=== PATIENT | male | born 1955 | race African-American/Black ===

== ENCOUNTER → 2020-10-23 | Outpatient (CLI) | payer BC ==
[2020-10-23 15:55] LABS: *AMPHETAMINES SCREEN URINE NEGATIVE (NEGATIVE); *BARBITURATES SCREEN URINE NEGATIVE (NEGATIVE); *BENZODIAZEPINES SCREEN URINE NEGATIVE (NEGATIVE); *COCAINE SCREEN URINE NEGATIVE (NEGATIVE); METHADONE URINE SCREEN NEGATIVE (NEGATIVE)
[2020-10-23 15:56] LABS: CANNABINOID URINE SCREEN NEGATIVE (NEGATIVE); OPIATES URINE SCREEN PRESUMTIVE POSITIVE (NEGATIVE)
[2020-10-23 15:57] LABS: PHENCYCLIDINE URINE SCREEN NEGATIVE (NEGATIVE)
== END | disposition home or self-care (01) ==
LOC: LAB 14:41
PROVIDERS: ATTEND Internal Medicine
DX: R82.5 Elevated urine levels of drugs, medicaments and biological substances (principal)
CPT/HCPCS: 80305

== ENCOUNTER → 2021-05-22 | Outpatient (CLI) | payer BC, MEDICARE ==
[2021-05-22 10:49] LABS: BASOPHILS % 0.3 % (0.0-2.0); EOSINOPHILS % 0.7 % (0.0-5.0); HEMATOCRIT. 43.3 % (42.0-52.0); LYMPHOCYTES % 24.2 % (20.0-50.0); MEAN CORPUSCULAR HEMOGLOBIN 28.5 pg (28.0-32.0); MEAN PLATELET VOLUME 8.3 fl (7.4-10.4); MONOCYTES % 9.1 % (2.0-8.0); NEUTROPHILS % 65.7 % (40.0-76.0); PLATELET 221 x1000/uL (130-400); RED BLOOD CELL COUNT 4.92 mill/uL (4.7-6.1); RED CELL DISTRIBUTION WIDTH 15.8 % (11.6-14.6)
[2021-05-22 10:59] LABS: CLARITY URINE CLEAR (CLEAR); COLOR URINE YELLOW (YELLOW); KETONES URINE TRACE (NEGATIVE); LEUKOCYTE ESTERASE URINE NEGATIVE (NEGATIVE); NITRITE URINE NEGATIVE (NEGATIVE); OCCULT BLOOD URINE NEGATIVE (NEGATIVE); PH URINE 5.5 (4.5-8.0); PROTEIN URINE 1+ (NEGATIVE); SPECIFIC GRAVITY URINE 1.034 (1.005-1.030); UROBILINOGEN URINE 0.2 E.U./dL (0.2-1.0)
[2021-05-22 11:52] LABS: CHLORIDE 105 mEq/L (98-107)
[2021-05-22 12:00] LABS: LDL CHOLESTEROL 61 mg/dL (5-100)
[2021-05-22 12:01] LABS: HDL CHOLESTEROL 61 mg/dL (40-59)
[2021-05-23 09:09] LABS: VITAMIN D 25-OH 12.7 ng/mL (30.0-100.0)
[2021-05-31 17:06] LABS: BARBITURATE SCREEN Negative ug/mL (Cutoff:0.1); BENZODIAZEPINE SCREEN Negative ng/mL (Cutoff:20); OPIATES SCREEN Negative ng/mL (Cutoff:5); PHENCYCLIDINE SCREEN Negative ng/mL (Cutoff:8)
== END | disposition home or self-care (01) ==
LOC: LAB 10:19
PROVIDERS: ATTEND Internal Medicine
DX: Z11.59 Encounter for screening for other viral diseases (principal); E78.5 Hyperlipidemia, unspecified; E55.9 Vitamin D deficiency, unspecified; N40.1 Benign prostatic hyperplasia with lower urinary tract symptoms; N39.0 Urinary tract infection, site not specified; E03.9 Hypothyroidism, unspecified; E11.40 Type 2 diabetes mellitus with diabetic neuropathy, unspecified; R82.5 Elevated urine levels of drugs, medicaments and biological substances
CPT/HCPCS: 36415; 80053; 80061; 80307; 81003; 82306; 83036; 84153; 84443; 85025; G0103

== ENCOUNTER → 2021-06-18 | Outpatient (CLI) | payer BC, MEDICARE | END | disposition home or self-care (01) | LOC: NM 07:35 | PROVIDERS: ATTEND Specialist | DX: R06.00 Dyspnea, unspecified (principal); R07.9 Chest pain, unspecified | CPT/HCPCS: 78451; A9500 ==

== ENCOUNTER → 2021-06-28 | Outpatient (CLI) | payer BC, MEDICARE ==
[~2021-06-28] MED LIST: REGADENOSON 0.4 MG/5 ML IV ONE
== END | disposition home or self-care (01) ==
LOC: NM 08:47
PROVIDERS: ATTEND Specialist
DX: R06.09 Other forms of dyspnea (principal); R07.9 Chest pain, unspecified; Z79.899 Other long term (current) drug therapy
CPT/HCPCS: 78452; 93017; A9500; C1893; J2785

== ENCOUNTER → 2021-07-25 | Outpatient (CLI) | payer BC, MEDICARE ==
[2021-07-25 13:25] LABS: BASOPHILS % 0.6 % (0.0-2.0); EOSINOPHILS % 1.3 % (0.0-5.0); HEMOGLOBIN. 13.9 g/dL (14.0-18.0); LYMPHOCYTES % 39.8 % (20.0-50.0); MEAN CORPUSCULAR HEMOGLOBIN 29.3 pg (28.0-32.0); MEAN CORPUSCULAR VOLUME 86.6 fL (80.0-94.0); MEAN PLATELET VOLUME 7.7 fl (7.4-10.4); MONOCYTES % 11.5 % (2.0-8.0); NEUTROPHILS % 46.8 % (40.0-76.0); PLATELET 217 x1000/uL (130-400); RED BLOOD CELL COUNT 4.73 mill/uL (4.7-6.1); RED CELL DISTRIBUTION WIDTH 16.4 % (11.6-14.6)
[2021-07-25 13:36] LABS: CHLORIDE 107 mEq/L (98-107)
[2021-07-25 13:44] LABS: LDL CHOLESTEROL 70 mg/dL (5-100)
[2021-07-25 13:45] LABS: HDL CHOLESTEROL 68 mg/dL (40-59); T4 FREE 0.99 ng/dL (0.76-1.46)
== END | disposition home or self-care (01) ==
LOC: LAB 12:59
PROVIDERS: ATTEND Specialist
DX: E11.9 Type 2 diabetes mellitus without complications (principal); E78.2 Mixed hyperlipidemia; E55.9 Vitamin D deficiency, unspecified; D64.9 Anemia, unspecified
CPT/HCPCS: 36415; 80053; 80061; 82306; 83036; 84439; 84443; 84481; 85025

== ENCOUNTER → 2021-07-29 | Outpatient (CLI) | payer BC, MEDICARE | END | disposition home or self-care (01) | LOC: CCL 08:48 | PROVIDERS: ATTEND Specialist | DX: I51.7 Cardiomegaly (principal); I51.89 Other ill-defined heart diseases | CPT/HCPCS: 93306 ==

== ENCOUNTER → 2021-08-06 | Outpatient (CLI) | payer BC, MEDICARE ==
[~2021-08-06] MED LIST changes: +IOHEXOL-300 100 ML BOTTLE ONE; -REGADENOSON 0.4 MG/5 ML IV ONE
== END | disposition home or self-care (01) ==
LOC: RAD 07:36
PROVIDERS: ATTEND Specialist
DX: J84.89 Other specified interstitial pulmonary diseases (principal); K76.0 Fatty (change of) liver, not elsewhere classified; R06.02 Shortness of breath; Z90.49 Acquired absence of other specified parts of digestive tract
CPT/HCPCS: 71270; Q9967; Z7610

== ENCOUNTER → 2021-08-15 | Outpatient (CLI) | payer BC, MEDICARE ==
[2021-08-15 13:23] LABS: BASOPHILS % 0.6 % (0.0-2.0); EOSINOPHILS % 0.7 % (0.0-5.0); HEMATOCRIT. 43.5 % (42.0-52.0); HEMOGLOBIN. 14.3 g/dL (14.0-18.0); LYMPHOCYTES % 37.5 % (20.0-50.0); MEAN CORPUSCULAR HEMOGLOBIN 28.8 pg (28.0-32.0); MEAN CORPUSCULAR VOLUME 87.3 fL (80.0-94.0); MEAN PLATELET VOLUME 8.4 fl (7.4-10.4); MONOCYTES % 9.1 % (2.0-8.0); NEUTROPHILS % 52.1 % (40.0-76.0); PLATELET 225 x1000/uL (130-400); RED BLOOD CELL COUNT 4.98 mill/uL (4.7-6.1); RED CELL DISTRIBUTION WIDTH 16.4 % (11.6-14.6)
[2021-08-15 13:32] LABS: CHLORIDE 105 mEq/L (98-107)
[2021-08-15 13:39] LABS: LDL CHOLESTEROL 71 mg/dL (5-100)
[2021-08-15 13:40] LABS: HDL CHOLESTEROL 63 mg/dL (40-59)
== END | disposition home or self-care (01) ==
LOC: LAB 12:59
PROVIDERS: ATTEND Specialist
DX: E78.2 Mixed hyperlipidemia (principal); D64.9 Anemia, unspecified
CPT/HCPCS: 36415; 80053; 80061; 82306; 83036; 85025

== ENCOUNTER → 2021-09-03 | Outpatient (CLI) | payer BC, MEDICARE ==
[2021-09-03 10:39] LABS: CHLORIDE 105 mEq/L (98-107)
== END | disposition home or self-care (01) ==
LOC: LAB 10:05
PROVIDERS: ATTEND Internal Medicine
DX: E11.42 Type 2 diabetes mellitus with diabetic polyneuropathy (principal); E78.5 Hyperlipidemia, unspecified; E55.9 Vitamin D deficiency, unspecified; Z11.59 Encounter for screening for other viral diseases; E03.9 Hypothyroidism, unspecified
CPT/HCPCS: 36415; 80048; 82306; 83036; 84443

== ENCOUNTER → 2021-10-22 | Outpatient (CLI) | payer BC, MEDICARE ==
[2021-10-22 15:25] LABS: BASOPHILS % 0.6 % (0.0-2.0); EOSINOPHILS % 1.2 % (0.0-5.0); HEMATOCRIT. 44.9 % (42.0-52.0); HEMOGLOBIN. 14.5 g/dL (14.0-18.0); LYMPHOCYTES % 38.6 % (20.0-50.0); MEAN CORPUSCULAR HEMOGLOBIN 28.4 pg (28.0-32.0); MEAN CORPUSCULAR VOLUME 88.2 fL (80.0-94.0); MONOCYTES % 11.2 % (2.0-8.0); NEUTROPHILS % 48.4 % (40.0-76.0); PLATELET 244 x1000/uL (130-400)
[2021-10-22 15:40] LABS: CHLORIDE 107 mEq/L (98-107)
[2021-10-22 15:47] LABS: LDL CHOLESTEROL 67 mg/dL (5-100)
[2021-10-22 15:48] LABS: HDL CHOLESTEROL 63 mg/dL (40-59)
[2021-10-22 16:08] LABS: PROSTRATE SPECIFIC AG TOTAL 0.77 ng/mL (0.0-4.0)
[2021-10-24 08:11] LABS: VITAMIN D 25-OH 26.9 ng/mL (30.0-100.0)
== END | disposition home or self-care (01) ==
LOC: LAB 14:36
PROVIDERS: ATTEND Internal Medicine
DX: E11.40 Type 2 diabetes mellitus with diabetic neuropathy, unspecified (principal); E78.5 Hyperlipidemia, unspecified; N40.1 Benign prostatic hyperplasia with lower urinary tract symptoms; E55.9 Vitamin D deficiency, unspecified; N39.0 Urinary tract infection, site not specified; E03.9 Hypothyroidism, unspecified; G56.00 Carpal tunnel syndrome, unspecified upper limb
CPT/HCPCS: 36415; 80053; 80061; 82306; 82607; 83036; 83880; 84153; 84207; 84252; 84425; 84436; 84443; 85025; G0103

== ENCOUNTER → 2021-12-24 | Outpatient (CLI) | payer MEDICARE | END | disposition home or self-care (01) | LOC: LAB 09:50 | PROVIDERS: ATTEND Internal Medicine | DX: E11.40 Type 2 diabetes mellitus with diabetic neuropathy, unspecified (principal) | CPT/HCPCS: 83036 ==

== ENCOUNTER → 2022-02-07 | Outpatient (CLI) | payer MEDICARE ==
[~2022-02-07] MED LIST changes: -IOHEXOL-300 100 ML BOTTLE ONE; +LIDOCAINE HCL/EPINEPHRINE 1%-EPI 1:100,000 20 ML VIAL ONE; +SODIUM BICARBONATE 4% (2.4MEQ) 5ML VIAL IV ONE
== END | disposition home or self-care (01) ==
LOC: RAD 09:33
PROVIDERS: ATTEND Internal Medicine
DX: N63.0 Unspecified lump in unspecified breast (principal)
CPT/HCPCS: 76641; J3490

== ENCOUNTER → 2022-09-23 | Outpatient (CLI) | payer BC, MEDICARE | END | disposition home or self-care (01) | LOC: US 08:41 | PROVIDERS: ATTEND Internal Medicine | DX: K76.0 Fatty (change of) liver, not elsewhere classified (principal); R16.0 Hepatomegaly, not elsewhere classified; J44.9 Chronic obstructive pulmonary disease, unspecified; R91.8 Other nonspecific abnormal finding of lung field; R14.0 Abdominal distension (gaseous) | CPT/HCPCS: 71046; 76700 ==

== ENCOUNTER → 2023-03-03 | Day surgery (SDC) | payer BC, MEDICARE ==
[~2023-03-03] MED LIST changes: +ACETAMINOPHEN 325MG TABLET PO PRN; +ALBU90AE INH; +AMOX1TAB16 MT; +ASPIRIN/SOD BICARB/CITRIC ACID 324MG TAB EFF ONE; +DEXL30CA3 PO; +DIPHENHYDRAMINE 50MG/ML VIAL ONE; +DOXA2TAB2 PO; +ERGO1250; +FAMOTIDINE 20MG/2ML VIAL IV ONE; +FENTANYL CITRATE/PF 50MCG/ML 2ML VIAL ONE; +FLUT1BLS3 IH; +GABA-290 PO; +HEPARIN 1000 UNITS/ML 10ML ONE; +HYDROCORTISONE SOD SUCCINATE 250 MG/2 ML VIAL ONE; +IODIXANOL 320MG/ML 100 ML BOTTLE IV ONE; +LIDOCAINE HCL 1% 20ML VIAL (Pyxis) INJ ONE; -LIDOCAINE HCL/EPINEPHRINE 1%-EPI 1:100,000 20 ML VIAL ONE; +MAGN200T5 PO; +MED4 MT; +METF-874 MT; +MIDAZOLAM HCL 2 MG/2 ML VIAL ONE; +MORPHINE SULFATE 2 MG/ML CPJ (NOT FOR IM USE) IV PRN; +NALOXONE HCL 0.4MG/ML VIAL IV PRN; +ONDANSETRON HCL 4MG/2ML INJ IV PRN; +OXYC-105 MT; +SACU1TAB4 PO; -SODIUM BICARBONATE 4% (2.4MEQ) 5ML VIAL IV ONE; +SPIR25TA PO; +TREP1.743 IH; +ZOLP12.52 PO
== END | disposition home or self-care (01) ==
LOC: CCL 06:26
PROVIDERS: ATTEND Specialist
DX: R07.9 Chest pain, unspecified (principal); I25.10 Atherosclerotic heart disease of native coronary artery without angina pectoris; E78.5 Hyperlipidemia, unspecified; E11.9 Type 2 diabetes mellitus without complications; I11.0 Hypertensive heart disease with heart failure; I50.9 Heart failure, unspecified; J44.9 Chronic obstructive pulmonary disease, unspecified; Z87.891 Personal history of nicotine dependence; Z79.84 Long term (current) use of oral hypoglycemic drugs; Z79.899 Other long term (current) drug therapy; Z98.890 Other specified postprocedural states; Z91.013 Allergy to seafood
CPT/HCPCS: 93460; C1769; C1887; C1893; J1200; J1644; J1720; J2250; J3010; J3490; Q9967

== ENCOUNTER → 2024-04-12 | Outpatient (CLI) | payer BC, MEDICARE ==
[~2024-04-12] MED LIST changes: -ACETAMINOPHEN 325MG TABLET PO PRN; -ASPIRIN/SOD BICARB/CITRIC ACID 324MG TAB EFF ONE; +BARIUM SULFATE 450ML ORAL SUSP ONE; -DIPHENHYDRAMINE 50MG/ML VIAL ONE; -FAMOTIDINE 20MG/2ML VIAL IV ONE; -FENTANYL CITRATE/PF 50MCG/ML 2ML VIAL ONE; -HEPARIN 1000 UNITS/ML 10ML ONE; -HYDROCORTISONE SOD SUCCINATE 250 MG/2 ML VIAL ONE; -IODIXANOL 320MG/ML 100 ML BOTTLE IV ONE; +IOHEXOL-300 100 ML BOTTLE ONE; -LIDOCAINE HCL 1% 20ML VIAL (Pyxis) INJ ONE; -MIDAZOLAM HCL 2 MG/2 ML VIAL ONE; -MORPHINE SULFATE 2 MG/ML CPJ (NOT FOR IM USE) IV PRN; -NALOXONE HCL 0.4MG/ML VIAL IV PRN; -ONDANSETRON HCL 4MG/2ML INJ IV PRN
== END | disposition home or self-care (01) ==
LOC: CT 08:00
PROVIDERS: ATTEND Internal Medicine
DX: J44.9 Chronic obstructive pulmonary disease, unspecified (principal); J84.9 Interstitial pulmonary disease, unspecified; N28.1 Cyst of kidney, acquired
CPT/HCPCS: 71250; 74176; Q9967

== ENCOUNTER → 2024-07-12 | Outpatient (CLI) | payer BC, MEDICARE ==
[~2024-07-12] MED LIST changes: -BARIUM SULFATE 450ML ORAL SUSP ONE; -IOHEXOL-300 100 ML BOTTLE ONE; -MED4 MT; +METH4TAB95 MT
== END | disposition home or self-care (01) ==
LOC: CARD 07:36
PROVIDERS: ATTEND Specialist
DX: I35.8 Other nonrheumatic aortic valve disorders (principal); I10 Essential (primary) hypertension; R06.02 Shortness of breath
CPT/HCPCS: 93306

== ENCOUNTER 2024-09-27 22:44 | Inpatient (IN) | payer BC, MEDICARE ==
[~2024-09-27] VITALS: Ht 190.5 cm; Wt 114.4 kg
[~2024-09-27 22:44] MED LIST changes: +METF-1150 MT; -METF-874 MT
[2024-09-28] MEDS: PREDNISONE 20MG TABLET PO STA
[2024-09-28 00:49] LABS: CHLORIDE 105 mEq/L (98-107); POTASSIUM 3.8 mEq/L (3.5-5.1); SODIUM 139 mEq/L (136-145)
[2024-09-28 00:50] LABS: CALCIUM 9.3 mg/dL (8.7-10.4); CARBON DIOXIDE 26 mEq/L (21-32)
[2024-09-28 00:55] LABS: GLUCOSE 96 mg/dL (70-105); UREA NITROGEN BLOOD 7 mg/dL (9-23)
[2024-09-28 00:56] LABS: TROPONIN I HIGH SENSITIVITY 7 ng/L (3.0-53)
[2024-09-28 00:58] LABS: PROTHROMBIN TIME 11.6 sec (9.6-11.0)
[2024-09-28 01:11] LABS: BASOPHILS % 0.3 % (0.0-2.0); EOSINOPHILS % 2.9 % (0.0-5.0); HEMATOCRIT. 44.9 % (42.0-52.0); HEMOGLOBIN. 14.3 g/dL (14.0-18.0); LYMPHOCYTES % 38.9 % (20.0-50.0); MEAN CORPUSCULAR HEMOGLOBIN 29.7 pg (28.0-32.0); MEAN CORPUSCULAR HGB CONC 31.9 g/dL (31.0-37.0); MEAN CORPUSCULAR VOLUME 93.1 fL (80.0-94.0); MEAN PLATELET VOLUME 8.2 fl (7.4-10.4); MONOCYTES % 10.2 % (2.0-8.0); NEUTROPHILS % 47.7 % (40.0-76.0); PLATELET 278 x1000/uL (130-400); RED BLOOD CELL COUNT 4.82 mill/uL (4.7-6.1); RED CELL DISTRIBUTION WIDTH 15.9 % (11.6-14.6); WHITE BLOOD COUNT 6.2 x1000/uL (4.5-11.0)
[2024-09-28 01:16] LABS: ALANINE AMINOTRANSFERASE 14 IU/L (10-49); ALBUMIN 4.3 g/dL (3.2-4.8); ASPARTATE AMINOTRANSFERASE 14 IU/L (<34)
[2024-09-28 01:17] LABS: BILIRUBIN DIRECT 0.2 mg/dL (<=3.0); BILIRUBIN TOTAL 0.5 mg/dL (0.1-1.0); PROTEIN TOTAL 7.7 g/dL (6.0-8.3)
[2024-09-28] MEDS ORDERED: AZITHROMYCIN 500MG/250ML 250 ML IV SCH (01:30)
[2024-09-28] MEDS: PREDNISONE 20MG TABLET PO NR (02:15)
[2024-09-28] MEDS ORDERED: AZITHROMYCIN 500MG/250ML 250 ML IV NR (02:15)
[2024-09-28] MEDS: IPRATROPIUM BROMIDE (0.02%) 0.5MG/2.5ML NEB HHN STA (02:20)
[2024-09-28] MEDS: ALBUTEROL (0.083%) 2.5MG/3ML NEB HHN STA (02:20)
[2024-09-28] MEDS: ALBUTEROL (0.083%) 2.5MG/3ML NEB HHN NR (02:29)
[2024-09-28] MEDS: IPRATROPIUM BROMIDE (0.02%) 0.5MG/2.5ML NEB HHN NR (02:29)
[2024-09-28 02:31] VITALS: PULSE 85; RESP 19; O2SAT 96
[2024-09-28 02:31] LABS: TROPONIN I HIGH SENSITIVITY 7 ng/L (3.0-53)
[2024-09-28] MEDS: CEFTRIAXONE 1GM/50ML 50 ML IV ONE (05:29)
[2024-09-28] MEDS: CEFTRIAXONE 1GM/50ML 50 ML IV NR (05:50)
[2024-09-28] MEDS ORDERED: AZITHROMYCIN 500 MG in SODIUM CHLORIDE 0.9% 250 ML IV NR (06:30)
[2024-09-28] MEDS: AZITHROMYCIN 500 MG TABLET PO NR (06:47)
[2024-09-28 08:00] VITALS: BP_SYST 122; BP_SYST 128; BP_DIAS 74; BP_DIAS 76; PULSE 86; PULSE 89; RESP 19; TEMP 36.44736; TEMP 37.16964; O2SAT 100; O2SAT 98
[2024-09-28] MEDS ORDERED: ONDANSETRON HCL 4MG/2ML INJ IV PRN (10:15)
[2024-09-28] MEDS ORDERED: ACETAMINOPHEN 325MG TABLET PO PRN (10:15)
[2024-09-28] MEDS ORDERED: NALOXONE HCL 0.4MG/ML VIAL IV PRN (11:00)
[2024-09-28] MEDS: GABAPENTIN 300MG CAPSULE PO SCH (11:26)
[2024-09-28] MEDS: METFORMIN HCL 500MG TABLET PO SCH (11:27)
[2024-09-28] MEDS: EMPAGLIFLOZIN 25MG TABLET PO SCH (11:45)
[2024-09-28] MEDS: OXYCODONE HCL/ACETAMINOPHEN 5/325MG TABLET PO PRN (11:45)
[2024-09-28 11:58] VITALS: BP 122/74; PULSE 89; RESP 18; TEMP 36.3068
[2024-09-28 12:00] VITALS: BP 128/76; PULSE 86; RESP 19; TEMP 36.44736; O2SAT 100
[2024-09-28 16:00] VITALS: BP 134/71; PULSE 87; RESP 19; TEMP 36.83628; O2SAT 97
[2024-09-28 17:03] LABS: HEPATITIS B SURFACE ANTIGEN NEGATIVE (Negative)
[2024-09-28 17:25] LABS: HEPATITIS C AB NON REACTIVE (Neg) (Negative)
[2024-09-28] MEDS ORDERED: DEXTROSE 50% WATER 50ML SYRINGE IV PRN (19:15)
[2024-09-28] MEDS: BLOOD SUGAR DIAGNOSTIC STRIP TEST SCH (21:00)
[2024-09-28 21:04] VITALS: PULSE 80; RESP 18; O2SAT 97
[2024-09-28] MEDS: IPRATROPIUM/ALBUTEROL 0.5-3(2.5)MG/3ML NEB HHN SCH (21:04)
[2024-09-28] MEDS: PREDNISONE 20MG TABLET PO SCH (21:59)
[2024-09-28] MEDS: ZOLPIDEM TARTRATE 5MG TABLET PO PRN (22:01)
[2024-09-28] MEDS: SACUBITRIL/VALSARTAN 24MG/26MG TABLET PO SCH (22:08)
[2024-09-28] MEDS: DOXAZOSIN MESYLATE 4MG TABLET PO SCH (22:09)
[2024-09-28] MEDS: INSULIN LISPRO 100 UNITS/ML SUBCUT SCH (22:17)
[2024-09-29] VITALS (9 sets, daily range): BP systolic 107–137; BP diastolic 54–78; PULSE 68–86; RESP 18–19; TEMP 35.5584–36.78072; O2SAT 96–99
[2024-09-29] MEDS: FLUTICASONE/VILANTEROL 200-25 BLST.W.DEV ORI SCH (00:29)
[2024-09-29] MEDS ORDERED: P20 MT (08:13)
[2024-09-30] VITALS: BP_SYST 122; BP_SYST 136; BP_DIAS 59; BP_DIAS 83; PULSE 75; PULSE 85; RESP 20; TEMP 36.16956; TEMP 36.50292; O2SAT 98; O2SAT 99
[2024-09-30 07:48] VITALS: PULSE 70; RESP 18; O2SAT 93
[2024-09-30] MEDS ORDERED: IPRA3AMP9 NEB (08:34)
[2024-09-30 15:11] VITALS: PULSE 84; RESP 20; O2SAT 98
[2024-09-30 16:17] VITALS: BP 116/72; PULSE 75; TEMP 97.8; O2SAT 100
== END 2024-09-30 17:20 | disposition home or self-care (01) | DRG 189 ==
LOC: ER 22:44 → 7EST 09-28 01:34 → EDBEDREQTM 09-28 01:49
PROVIDERS: ADMIT Internal Medicine; ATTEND Internal Medicine
DX: J96.20 Acute and chronic respiratory failure, unspecified whether with hypoxia or hypercapnia (principal); I42.9 Cardiomyopathy, unspecified; I27.20 Pulmonary hypertension, unspecified; J44.9 Chronic obstructive pulmonary disease, unspecified; E11.9 Type 2 diabetes mellitus without complications; Z20.822 Contact with and (suspected) exposure to COVID-19; J06.9 Acute upper respiratory infection, unspecified; I25.10 Atherosclerotic heart disease of native coronary artery without angina pectoris; E78.5 Hyperlipidemia, unspecified; G89.29 Other chronic pain; J84.10 Pulmonary fibrosis, unspecified; I11.0 Hypertensive heart disease with heart failure; I50.9 Heart failure, unspecified; Z96.651 Presence of right artificial knee joint; Z79.84 Long term (current) use of oral hypoglycemic drugs; Z87.891 Personal history of nicotine dependence; Z88.8 Allergy status to other drugs, medicaments and biological substances; Z79.899 Other long term (current) drug therapy; Z82.0 Family history of epilepsy and other diseases of the nervous system
CPT/HCPCS: 36415; 71045; 80048; 80076; 82962; 83880; 84145; 84484; 85025; 86705; 87340; 87426; 87804; 93005; 94070; 94640; 99285; J0456; J0696; J1815; J7050; J7512

== ENCOUNTER → 2025-02-15 | Outpatient (CLI) | payer MEDICARE ==
[~2025-02-15] MED LIST changes: +IPRA3AMP9 NEB; -METH4TAB95 MT; +P20 MT
== END | disposition home or self-care (01) ==
LOC: RAD 10:04
PROVIDERS: ATTEND Internal Medicine
DX: M47.812 Spondylosis without myelopathy or radiculopathy, cervical region (principal); M19.012 Primary osteoarthritis, left shoulder; M19.032 Primary osteoarthritis, left wrist; M18.12 Unilateral primary osteoarthritis of first carpometacarpal joint, left hand; M21.241 Flexion deformity, right finger joints; M77.8 Other enthesopathies, not elsewhere classified; M25.78 Osteophyte, vertebrae; M79.89 Other specified soft tissue disorders; R29.890 Loss of height; M54.2 Cervicalgia; M25.512 Pain in left shoulder; M25.522 Pain in left elbow; M79.642 Pain in left hand; M25.532 Pain in left wrist
CPT/HCPCS: 72040; 73030; 73080; 73110; 73130

== ENCOUNTER → 2025-02-15 | Outpatient (CLI) | payer MEDICARE | END | disposition home or self-care (01) | LOC: RAD 10:04 | PROVIDERS: ATTEND Specialist | DX: J98.11 Atelectasis (principal); I42.0 Dilated cardiomyopathy; R06.02 Shortness of breath; R07.9 Chest pain, unspecified | CPT/HCPCS: 71046 ==

== ENCOUNTER → 2025-05-23 | Outpatient (CLI) | payer MEDICARE | END | disposition home or self-care (01) | LOC: RAD 14:54 | DX: M19.042 Primary osteoarthritis, left hand (principal); M19.041 Primary osteoarthritis, right hand; M17.0 Bilateral primary osteoarthritis of knee; M79.89 Other specified soft tissue disorders; M76.9 Unspecified enthesopathy, lower limb, excluding foot; M79.642 Pain in left hand; M79.641 Pain in right hand; M25.562 Pain in left knee; M25.561 Pain in right knee; Z96.651 Presence of right artificial knee joint | CPT/HCPCS: 73130; 73562 ==